=== PATIENT | female | born 1985 | race Caucasian/White ===

== ENCOUNTER 2017-07-30 21:09 | Emergency (ER) | payer MEDICAID ==
[~2017-07-30] VITALS: Ht 160 cm; Wt 122.5 kg
[~2017-07-30 21:09] MED LIST: ACETAMINOPHEN-H1 TA2 PO; BACTRIM 400 MG-1 TAB PO; CALCIUM GLUCON650 MG PO; CLINDAMYCIN HC300 MG PO; FIORICET1 CAP PO; GABAPENTIN 600600 MG PO; GABAPENTIN300 M1 PO; GLIPIZIDE XL5 M1 PO; GLIPIZIDE10 M3 PO; GLIPIZIDE10 MG PO; GLUCOPHAGE 850850 MG PO; IBUPROFEN800 MG PO; JARDIANCE10 MG PO; KEFLEX 500MG.500 MG PO; LIPITOR40 MG PO; LISINOPRIL2.5 MG PO; LISINOPRIL40 MG PO; METFORMIN HCL1000 MG PO; METFORMIN500 MG PO; MOTRIN 600MG.600 MG PO; NAPROXEN SODIU500 MG PO; NEURONTIN600 MG PO; NOMEDS XX; PROPRANOLOL ER80 MG PO; PROTONIX 40MG T40 MG PO; SUMATRIPTAN SU100 M1 PO; TERBINAFINE250 MG PO; TESSALON PERLE100 M1 PO; TESSALON PERLE100 MG PO; TYLENOL W/CODEI1 TAB PO; ZITHROMAX Z PA250 MG PO; ZITHROMAX Z-PA250 M1 PO; ZOFRAN ODT8 M1 PO
--- NOTE | 2017-07-30 21:50 | Emergency Room Report ---
History of Present Illness Time Seen by [id number] Presenting Problem in Triage Pt arrived:Walked Presenting Problem:C/O MIGRAINE HEADACHE FOR 2 DAYS. LIGHT SENSITIVE, DIZZY AND NAUSEATED Onset of symptoms date/time:/ or onset unknown for:MEDICAL HX UNKNOWN Treatment Prior to Arrival: [employer] Provided by: Sepsis Risk Assessment: Temp: 97.6 B/P: 124/71 MAP: 88 Pulse: 82 Resp: 18 Recent fever? N Clinical Suspician of Infection? N Mental Status: 1 - Regular (Normal Baseline) Sepsis Risk:Low Sepsis Ris Have you (or family members/close friends) recently traveled outside the [place]? N If Yes, where/when: Have you had exposure to infectious disease within the past month? N TB? Other? Specify: Source patient, RN notes reviewed, old records Exam Limitations no limitations Comment pt with hx of marie with acute onset oh her prev type marie but did not resp to her home meds Cardiac Chest Pain Chest pain indicative of cardiac No Timing/Duration this evening Severity moderate ALLERGIES Coded Allergies: acetaminophen (From DARVOCET-N) (Mild, I-HIVES 06/01/17) ceftriaxone (From ROCEPHIN) (06/01/17) ketorolac (From TORADOL) (06/01/17) morphine (06/01/17) propoxyphene (From DARVOCET-N) (06/01/17) Home Medications Reported Medications Propranolol Hcl (Propranolol HCl ER) 120 MG PO DAILY #30 Glipizide 10 MG PO DAILY Empagliflozin (Jardiance) 10 MG PO DAILY Gabapentin (Neurontin) 600 MG PO TID Lisinopril (Lisinopril 40MG) 20 MG PO DAILY #30 TAB Sumatriptan Succinate 100 MG PO DAILYP PRN MIGRAINES #9 History Medical History General CAD? No Angina: No [place]: No Hypertension? Yes Hyperlipidemia? No CHF? No DVT? No PE? No COPD? No Asthma? Yes Anemia? No GERD? No Gastric ulcers? No GI Bleed? No Hernia? No Thyroid Problems? No Hypothyroidism? No CVA? No Seizures? Yes Diabetes? Yes Insulin Dependent: No Insulin Pump: No Home FSBS? Yes Renal Insuffiency? No End Stage Renal Disease? No UTI? Yes Stones? No BPH? No GB Disease: No Nephritic Syndrome? No Asplenia? No Hepatitis? No Sickle Cell Disease? No Arthritis? No Migraines? Yes Cataracts? No Glaucoma? No MRSA? No HIV? No TB? No Anxiety? No Depression? Yes Cancer? No More? No Additional hx: 1. Hx of Rheumatic Fever 2. Diabetic neuropathy 3. Menstrual Dysfunction Immunization Hx DT/Tetanus > 10 Years Ago Flu 2015-16FSN Pneumonia RefusesY Surgical Hx Previous Surgery?Y C SECTION X 3 TONSILLECTOMY WISDOM TEETH REMOVAL OF SWEAT GLANDS ON RIGHT SIDE UNDERARM REMOVAL OF L SWEAT GLANDS 3RD SWEAT GLAND REMOVAL BOILING OFF WINDER Hx LMP 1 Month Ago Family History Family Hx Diabetes Yes CAD No Hypertension Yes Hyperlipidemia Yes Cancer Yes TB No Social History Smoking Hx Smoker: Current Every Day Smoker Tobacco: Yes Type Cigarettes Packs/day < 1 Pack Alcohol Alcohol: No Drugs none Review of Systems All Other Systems Reviewed and Negative Constitutional denies fever Eyes denies drainage ENT denies: ear discharge, epistaxis, throat pain. Respiratory denies cough, denies shortness of breath, denies wheezing Cardiovascular denies chest pain, denies palpitations, denies syncope Gastrointestinal denies abdominal pain, denies diarrhea, denies vomiting Genitourinary denies: dysuria, frequency, hesitancy, hematuria. Musculoskeletal denies back pain, denies joint pain, denies joint swelling, denies neck pain Skin denies rash Psychiatric/Neurological see HPI, headache, denies seizure, denies weakness Physical Exam Vital Signs Vital Signs Date Time Temp Pulse Resp B/P Pulse O2 O2 Flow FiO2 Ox Delivery Rate 07/30 2121 97.6 82 18 124/71 95 - WBC >12,000 or <4,000 or 10% bands? 2 or more SIRS Criteria Met? B/P:124/71 MAP:88 Creatinine >2.0? UA output<0.5ml/kg/hr for 2 hrs? Platelet count >100,000? Lactate >2.0mmol/1? INR >1.2 or PTT > than 60 sec? Evidence of Organ Dysfunction? Provider documented clinical suspician of infection? N Sepsis Criteria Count: 0N Sepsis Risk: Low Sepsis Ris General Appearance no apparent distress Eye Exam - bilateral eye PERRL, bilateral eye EOMI Ear, Nose, Throat normal ENT inspection Neck supple Respiratory Status No: respiratory distress. Lung Sounds bilateral: lungs clear. 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 No Departure Departure Time of Disposition 2144 Disposition DC Home or Self Care(routine) Clinical Impression Primary Impression: Headache Qualifiers: Headache type: unspecified Headache chronicity pattern: acute headache Intractability: not intractable Qualified Code: R51 - Headache Condition STABLE Patient Instructions DI for Headache Additional Instructions use meds and call your pcp in am Discharge Counseling Counseled pt/family regarding diagnosis, medications/RX, follow up needs ED Critical Care Critical Care No at [phone]
--- NOTE | 2017-07-30 21:50 | Emergency Room Report ---
History of Present Illness Time Seen by [id number] Presenting Problem in Triage Pt arrived:Walked Presenting Problem:C/O MIGRAINE HEADACHE FOR 2 DAYS. LIGHT SENSITIVE, DIZZY AND NAUSEATED Onset of symptoms date/time:/ or onset unknown for:MEDICAL HX UNKNOWN Treatment Prior to Arrival: [employer] Provided by: Sepsis Risk Assessment: Temp: 97.6 B/P: 124/71 MAP: 88 Pulse: 82 Resp: 18 Recent fever? N Clinical Suspician of Infection? N Mental Status: 1 - Regular (Normal Baseline) Sepsis Risk:Low Sepsis Ris Have you (or family members/close friends) recently traveled outside the [place]? N If Yes, where/when: Have you had exposure to infectious disease within the past month? N TB? Other? Specify: Source patient, RN notes reviewed, old records Exam Limitations no limitations Comment pt with hx of marie with acute onset oh her prev type marie but did not resp to her home meds Cardiac Chest Pain Chest pain indicative of cardiac No Timing/Duration this evening Severity moderate ALLERGIES Coded Allergies: acetaminophen (From DARVOCET-N) (Mild, I-HIVES 06/01/17) ceftriaxone (From ROCEPHIN) (06/01/17) ketorolac (From TORADOL) (06/01/17) morphine (06/01/17) propoxyphene (From DARVOCET-N) (06/01/17) Home Medications Reported Medications Propranolol Hcl (Propranolol HCl ER) 120 MG PO DAILY #30 Glipizide 10 MG PO DAILY Empagliflozin (Jardiance) 10 MG PO DAILY Gabapentin (Neurontin) 600 MG PO TID Lisinopril (Lisinopril 40MG) 20 MG PO DAILY #30 TAB Sumatriptan Succinate 100 MG PO DAILYP PRN MIGRAINES #9 History Medical History General CAD? No Angina: No [place]: No Hypertension? Yes Hyperlipidemia? No CHF? No DVT? No PE? No COPD? No Asthma? Yes Anemia? No GERD? No Gastric ulcers? No GI Bleed? No Hernia? No Thyroid Problems? No Hypothyroidism? No CVA? No Seizures? Yes Diabetes? Yes Insulin Dependent: No Insulin Pump: No Home FSBS? Yes Renal Insuffiency? No End Stage Renal Disease? No UTI? Yes Stones? No BPH? No GB Disease: No Nephritic Syndrome? No Asplenia? No Hepatitis? No Sickle Cell Disease? No Arthritis? No Migraines? Yes Cataracts? No Glaucoma? No MRSA? No HIV? No TB? No Anxiety? No Depression? Yes Cancer? No More? No Additional hx: 1. Hx of Rheumatic Fever 2. Diabetic neuropathy 3. 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 Respiratory denies cough, denies shortness of breath, denies wheezing Cardiovascular denies chest pain, denies palpitations, denies syncope Gastrointestinal denies abdominal pain, denies diarrhea, denies vomiting Genitourinary denies: dysuria, frequency, hesitancy, hematuria. Musculoskeletal denies back pain, denies joint pain, denies joint swelling, denies neck pain Skin denies rash Psychiatric/Neurological see HPI, headache, denies seizure, denies weakness Physical Exam Vital Signs Vital Signs Date Time Temp Pulse Resp B/P Pulse O2 O2 Flow FiO2 Ox Delivery Rate 07/30 2121 97.6 82 18 124/71 95 - WBC >12,000 or <4,000 or 10% bands? 2 or more SIRS Criteria Met? B/P:124/71 MAP:88 Creatinine >2.0? UA output<0.5ml/kg/hr for 2 hrs? Platelet count >100,000? Lactate >2.0mmol/1? INR >1.2 or PTT > than 60 sec? Evidence of Organ Dysfunction? Provider documented clinical suspician of infection? N Sepsis Criteria Count: 0N Sepsis Risk: Low Sepsis Ris General Appearance no apparent distress Eye Exam - bilateral eye PERRL, bilateral eye EOMI Ear, Nose, Throat normal ENT inspection Neck supple Respiratory Status No: respiratory distress. Lung Sounds bilateral: lungs clear. 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 No Departure Departure Time of Disposition 2144 Disposition DC Home or Self Care(routine) Clinical Impression Primary Impression: Headache Qualifiers: Headache type: unspecified Headache chronicity pattern: acute headache Intractability: not intractable Qualified Code: R51 - Headache Condition STABLE Patient Instructions DI for Headache Additional Instructions use meds and call your pcp in am Discharge Counseling Counseled pt/family regarding diagnosis, medications/RX, follow up needs ED Critical Care Critical Care No at [phone]
[2017-07-30 22:19] VITALS: BP 122/54
== END 2017-07-30 22:20 | disposition home or self-care (01) ==
LOC: ER 21:09
DX: R51 Headache (principal); F17.210 Nicotine dependence, cigarettes, uncomplicated; E11.40 Type 2 diabetes mellitus with diabetic neuropathy, unspecified; J45.909 Unspecified asthma, uncomplicated; I10 Essential (primary) hypertension; Z79.84 Long term (current) use of oral hypoglycemic drugs; Z79.899 Other long term (current) drug therapy
CPT/HCPCS: J0595

== ENCOUNTER 2017-10-17 14:24 | Emergency (ER) | payer OTHER, MEDICAID ==
[~2017-10-17] VITALS: Ht 160 cm; Wt 122.5 kg
--- OUTSIDE RECORDS SUMMARY | 2017-10-17 14:45 | External Medical Summary Rpt | CCD ---
Author Author , CARLI HO Address Unknown Phone [email or web address] Purpose Continuity of Care Document - 06-01-2017 through 2016 Problems Code Diagnosis DOS Provider Status G89.29 OTHER 06-20-2017 CHRONIC PAIN M54.5 LOW BACK 06-20-2017 PAIN D72.829 ELEVATED WHITE BLOOD CELL COUNT, UNSPECIFIED E11.65 TYPE 2 DIABETES MELLITUS WITH HYPERGLYCEM IA E83.51 HYPOCALCEMI A E86.0 DEHYDRATION E86.1 HYPOVOLEMIA G89.18 OTHER ACUTE POSTPROCEDU RAL PAIN J01.90 ACUTE SINUSITIS, UNSPECIFIED J06.9 ACUTE UPPER RESPIRATORY INFECTION, UNSPECIFIED K85.90 ACUTE PANCREATITI S WITHOUT NECROSIS OR INFECTION, UNSP L03.111 CELLULITIS OF RIGHT AXILLA L03.90 CELLULITIS, UNSPECIFIED N92.6 IRREGULAR MENSTRUATIO N, UNSPECIFIED R07.9 CHEST PAIN, UNSPECIFIED R21 RASH AND OTHER NONSPECIFIC SKIN ERUPTION R51 HEADACHE S30.0XXA CONTUSION OF LOWER BACK AND PELVIS, INITIAL ENCOUNTER S33.5XXA SPRAIN OF LIGAMENTS OF LUMBAR SPINE, INITIAL ENCOUNTER S93.601A UNSPECIFIED SPRAIN OF RIGHT FOOT, INITIAL ENCOUNTER T78.40XA ALLERGY, UNSPECIFIED , INITIAL ENCOUNTER T88.7XXA UNSP ADVERSE EFFECT OF DRUG OR MEDICAMENT, INIT ENCNTR Z48.00 ENCOUNTER FOR CHANGE OR REMOVAL OF NONSURG WOUND DRESSING Z51.89 ENCOUNTER FOR OTHER SPECIFIED AFTERCARE Z71.89 OTHER SPECIFIED COUNSELING Z72.0 TOBACCO USE Z91.14 PATIENT'S OTHER NONCOMPLIAN CE WITH MEDICATION REGIMEN Results Labs Lab Lab Date Result Refere Interp Status Commen Order Detail nces retati t Range on Gas panel in Arterial blood (06-01-2017 14:00) Arteria ACCEPTA complet l 017 BLE ed patency 14:00 Wrist artery --pre arteria l punctur e SOURCE RIGHT complet 017 RADIAL ed 14:00 Drugs identified in Urine by Screen method (06-01-2017) Ampheta NEGATIV <1000 complet mine 017 E ed [Presen ce] in Urine by Screen method 11-Hydr POSITIV <50 Abnorma complet oxy 017 E l ed delta-9 tetrahy drocann abinol [Presen ce] in Unspeci fied specime n
--- OUTSIDE RECORDS SUMMARY | 2017-10-17 14:45 | External Medical Summary Rpt | CCD ---
Author Author [employer] Address Unknown Phone Unavailable Purpose Continuity of Care Document - through 2016
--- OUTSIDE RECORDS SUMMARY | 2017-10-17 14:45 | External Medical Summary Rpt | CCD ---
Author Author , CARLI HO Address Unknown Phone [email or web address] Purpose Continuity of Care Document - 06-01-2017 [...]
--- OUTSIDE RECORDS SUMMARY | 2017-10-17 14:46 | External Medical Summary Rpt ---
Author Author [facility]y, [facility] Organization [facility] Address Unknown Phone Unavailable Results Basic metabolic panel in Blood Observa Value Referen Units Interpr Notes Date tion ce etation Range Urea 7 - 18 mg/dL No No Jun 02 nitrogen informati informati 2016 6:30 [Mass/vol on in on in AM ume] in source source Serum or data data Plasma Calcium 8.5 - mg/dL Low No Jun 02 [Mass/vol 10.1 informati 2016 6:30 ume] in on in AM Serum or source Plasma data Chloride 98 - 107 mmoL/L High No Jun 02 [Moles/vo informati 2016 6:30 lume] in on in AM Serum or source Plasma data Carbon 21.0 - mmoL/L Normal No Jun 02 dioxide, 32.0 informati 2016 6:30 total on in AM [Moles/vo source lume] in data Serum or Plasma Creatinin 0.55 - mg/dL No No Jun 02 e 1.02 informati informati 2016 6:30 [Mass/vol on in on in AM ume] in source source Serum or data data Plasma Creatinin 50 - 200 ML/MIN High No Jun 02 e renal informati 2017 6:30 clearance on in AM source predicted data by Cockcroft -Gault formula Estimated 59- ML/MIN No REFERENCE Jun 02 informati RANGE: 2017 6:30 glomerula on in >60 AM r source ML/MIN/1. filtratio data 73 SQUARE n rate METERSIf (GF this patient is -A merican, then multiply theresult by 1.210. Glucose 74 - 106 mg/dL High No Jun 02 [Mass/vol informati 2016 6:30 ume] in on in AM Serum or source Plasma data Potassium 3.5 - 5.1 mmoL/L Normal No Jun 02 informati 2016 6:30 [Moles/vo on in AM lume] in source Serum or data Plasma Sodium 136 - 145 mmoL/L Normal No Jun 02 [Moles/vo informati 2017 6:30 lume] in on in AM Serum or source Plasma data CBC W Auto Differential panel in Blood Observa Value Referen Units Interpr Notes Date tion ce etation Range Basophils 0 - 0.2 K/MM3 Normal No Jun 02 informati 2017 6:30 [#/volume on in AM ] in source Blood by data Automated count Basophils 0.1 - 2.0 % Normal No Jun 02 / informati 2016 6:30 leukocyte on in AM s in source Blood by data Automated count Eosinophi 0.0 - 0.4 K/mm3 High No Jun 02 ls informati 2016 6:30 [#/volume on in AM ] in source Blood by data Automated count Eosinophi 0.1 - % Normal No Jun 02 ls/100 12.0 informati 2017 6:30 leukocyte on in AM s in source Blood by data Automated count Granulocy 1.8 - 7.8 K/mm3 Normal No Jun 02 judi informati 2016 6:30 [#/volume on in AM ] in source Blood by data Automated count Granulocy 37.0 - % Normal No Jun 02 judi/100 80.0 informati 2016 6:30 leukocyte on in AM s in source Blood by data Automated count Hematocri 37.0 - % Normal No Jun 02 t [Volume 47.0 informati 2017 6:30 on in AM Fraction] source of Blood data Hemoglobi 12.2 - g/dL Normal No Jun 02 n 16.2 informati 2016 6:30 [Mass/vol on in AM ume] in source Blood data Lymphocyt 0.7 - 4.5 K/mm3 Normal No Jun 02 es informati 2016 6:30 [#/volume on in AM ] in source Unspecifi data ed specimen by Automated count Lymphocyt 10 - 50.0 % Normal No Jun 02 es informati 2016 6:30 [#/volume on in AM ] in source Unspecifi data ed specimen by Automated count Erythrocy 27 - 31.2 pg Low No Jun 02 te mean informati 2016 6:30 corpuscul on in AM ar source hemoglobi data n [Entitic mass] Erythrocy 31.8 - g/dl Low No Jun 02 te mean 35.4 informati 2016 6:30 corpuscul on in AM ar source hemoglobi data n concentra tion [Mass/vol ume] by Automated count Erythrocy 82.2 - fl Normal No Jun 02 te mean 97.8 informati 2017 6:30 corpuscul on in AM ar volume source [Entitic data volume] by Automated count Monocytes 0.1 - 1.0 K/mm3 Normal No Jun 02 informati 2017 6:30 [#/volume on in AM ] in source Blood by data Automated count Monocytes 1.7 - 9.3 % Normal No Jun 02 /100 informati 2017 6:30 leukocyte on in AM s in source Blood by data Automated count Platelet 7.4 - fl Low No Jun 02 mean 10.4 informati 2017 6:30 volume on in AM [Entitic source volume] data in Blood by Automated count Platelets 142 - 424 K/mm3 Normal No Jun 02 informati 2017 6:30 [#/volume on in AM ] in source Blood data Erythrocy 4.2 - 5.4 M/mm3 Normal No Jun 02 judi informati 2016 6:30 [#/volume on in AM ] in source Amniotic data fluid Erythrocy 11.5 - % Normal No Jun 02 te 17.5 informati 2016 6:30 distribut on in AM ion width source [Entitic data volume] by Automated count Leukocyte 4.8 - K/MM3 Normal No Jun 02 s 10.8 informati 2016 6:30 [#/volume on in AM ] in source Blood data Glucose [Mass/volume] in Capillary blood by Glucometer Observa Value Referen Units Interpr Notes Date ti etation Range Glucose 70 - 110 mg/dl High No Jun 02 [Mass/vol informati 2017 6:15 ume] in on in AM Capillary source blood by data Glucomete r Glucose [Mass/volume] in Capillary blood by Glucometer Observa Value Referen Units Interpr Notes Date ti ce etation Range Glucose 70 - 110 mg/dl High No Jun 01 [Mass/vol informati 2016 7:54 ume] in on in PM Capillary source blood by data Glucomete r Glucose [Mass/volume] in Capillary blood by Glucometer Observa Value Referen Units Interpr Notes Date ti etation Range Glucose 70 - 110 mg/dl No No Jun 01 [Mass/vol informati informati 2017 5:02 ume] in on in on in PM Capillary source source blood by data data Glucomete r Glucose [Mass/volume] in Capillary blood by Glucometer Observa Value Referen Units Interpr Notes Date ti ce etation Range Glucose 70 - 110 mg/dl High No Jun 01 [Mass/vol informati 2017 3:58 ume] in on in PM Capillary source blood by data Glucomete r Gas panel in Arterial blood Observa Value Referen Units Interpr Notes Date ti ce etation Range Base -2.4-+2.3 MMOL/L Normal No Jun 01 excess in informati 2017 2:00 Arterial on in PM blood source data Arteria ACCEPTA No No No No Jun 01 l BLE informa informa informa informa 2017 patency tion in tion in tion in tion in 2:00 PM Wrist source source source source artery data data data data --pre arteria l punctur e Bicarbona 22.0 - MMOL/L Normal No Jun 01 te 26.0 informati 2016 2:00 [Moles/vo on in PM lume] in source Arterial data blood Oxygen No No No No Jun 01 content informati informati informati informati 2017 2:00 in on in on in on in on in PM Arterial source source source source blood data data data data Carbon 35.0 - MMHG Normal No Jun 01 dioxide 45.0 informati 2016 2:00 [Partial on in PM pressure] source in data Arterial blood pH of 7.35 - MMOL/L Normal No Jun 01 Arterial 7.45 informati 2016 2:00 blood on in PM source data Oxygen 80 - 100 MMHG Normal No Jun 01 [Partial informati 2017 2:00 pressure] on in PM in source Arterial data blood Oxygen 90 - 100 % Normal No Jun 01 saturatio informati 2017 2:00 n.calcula on in PM sasha from source oxygen data partial pressure in Arterial blood SOURCE RIGHT No No No No Jun 01 RADIAL informa informa informa informa 2017 tion in tion in tion in tion in 2:00 PM source source source source data data data data Carbon 23 - 27 MMOL/L Normal No Jun 01 dioxide, informati 2017 2:00 total on in PM [Moles/vo source lume] in data Arterial blood Lactate [Moles/volume] in Blood Observa Value Referen Units Interpr Notes Date ti ce etation Range Lactate 0.4 - 2.0 mmol/L Normal No Jun 01 [Moles/vo informati 2017 1:05 lume] in on in PM Blood source data Magnesium [Moles/volume] in Unspecified specimen Observa Value Referen Units Interpr Notes Date tion ce etation Range Magnesium 1.4 - 2.2 mg/dL Normal No Jun [id number] [Moles/vo on in 12:31 PM lume] in source Unspecifi data ed specimen Acetone [Mass/volume] in Serum or Plasma Observa Value Referen Units Interpr Notes Date tion ce etation Range Acetone NOT No No No Jun 01 [Mass/vol DETECTD informati informati informati 2016 ume] in on in on in on in 12:31 PM Serum or source source source Plasma data data data CBC W Auto Differential panel in Blood Observa Value Referen Units Interpr Notes Date tion ce etation Range Basophils 0 - 0.2 K/MM3 Normal No Jun 012016 [#/volume on in 12:31 PM ] in source Blood by data Automated count Basophils 0.1 - 2.0 % Normal No Jun 012016 leukocyte on in 12:31 PM s in source Blood by data Automated count Eosinophi 0.0 - 0.4 K/mm3 High No Jun 01 ls 2016 [#/volume on in 12:31 PM ] in source Blood by data Automated count Eosinophi 0.1 - % Normal No Jun 01 ls/100 12.0 2016 leukocyte on in 12:31 PM s in source Blood by data Automated count Granulocy 1.8 - 7.8 K/mm3 Normal No Jun 01 judi 2016 [#/volume on in 12:31 PM ] in source Blood by data Automated count Granulocy 37.0 - % Normal No Jun 01 judi/100 80.0 2016 leukocyte on in 12:31 PM s in source Blood by data Automated count Hematocri 37.0 - % Normal No Jun 01 t [Volume 47.0 ati 2016 on in 12:31 PM Fraction] source of Blood data Hemoglobi 12.2 - g/dL Normal No Jun 01 n 16.2 inform2016 [Mass/vol on in 12:31 PM ume] in source Blood data Lymphocyt 0.7 - 4.5 K/mm3 Normal No Jun 01 es inform2016 [#/volume on in 12:31 PM ] in source Unspecifi data ed specimen by Automated count Lymphocyt 10 - 50.0 % Normal No Jun 01 es 2016 [#/volume on in 12:31 PM ] in source Unspecifi data ed specimen by Automated count Erythrocy 27 - 31.2 pg Low No Jun 01 te mean 2016 corpuscul on in 12:31 PM ar source hemoglobi data n [Entitic mass] Erythrocy 31.8 - g/dl Low No Jun 01 te mean 35.4 2016 corpuscul on in 12:31 PM ar source hemoglobi data n concentra tion [Mass/vol ume] by Automated count Erythrocy 82.2 - fl Normal No Jun 01 te mean 97.8 2016 corpuscul on in 12:31 PM ar volume source [Entitic data volume] by Automated count Monocytes 0.1 - 1.0 K/mm3 Normal No Jun 012016 [#/volume on in 12:31 PM ] in source Blood by data Automated count Monocytes 1.7 - 9.3 % Normal No Jun 01 /100 2016 leukocyte on in 12:31 PM s in source Blood by data Automated count Platelet 7.4 - fl Low Jun 01 mean 10.4 2016 volume on in 12:31 PM [Entitic source volume] data in Blood by Automated count Platelets 142 - 424 K/mm3 Normal No Jun 012016 [#/volume on in 12:31 PM ] in source Blood data Erythrocy 4.2 - 5.4 M/mm3 Normal No Jun 01 judi 2016 [#/volume on in 12:31 PM ] in source Amniotic data fluid Erythrocy 11.5 - % Normal No Jun 01 te 17.5 2016 distribut on in 12:31 PM ion width source [Entitic data volume] by Automated count Leukocyte 4.8 - K/MM3 High No Jun 01 s 10.8 2016 [#/volume on in 12:31 PM ] in source Blood data Glucose [Mass/volume] in Capillary blood by Glucometer Observa Value Referen Units Interpr Notes Date tion ce etation Range Glucose 70 - 110 mg/dl High No Jun 01 [Mass/vol alert 2016 ume] in on in 12:05 PM Capillary source blood by data Glucomete r Drugs identified in Urine by Screen method Observa Value Referen Units Interpr Notes Date tion ce etation Range Positive urine drug screen samples are stored for 7 days. Contact the Lab if confirmation of positives is needed. Ampheta NEGATIV <1000 ng/mL No No Jun 01 mine E informa informa 2017 [Presen tion in tion in ce] in source source Urine data data by Screen method Barbitura <200 ng/mL No No Jun 01 judi informati informati 2017 [Mass/vol on in on in ume] in source source Urine by data data Screen method Benzodiaz 200 ng/mL ng/mL No No Jun 01 epines informati informati 2017 [Mass/vol on in on in ume] in source source Serum or data data Plasma by Screen method Cocaine <300 ng/g No No Jun 01 [Mass/vol informati informati 2016 ume] in on in on in Unspecifi source source ed data data specimen Methadone <300 ng/mL No No Jun 01 informati informati 2017 [Mass/vol on in on in ume] in source source Unspecifi data data ed specimen Opiates <300 ng/mL No No Jun 01 [Mass/vol informati informati 2016 ume] in on in on in Unspecifi source source ed data data specimen Phencycli <25 ng/mL No No Jun 01 dine informati informati 2016 [Mass/vol on in on in ume] in source source Unspecifi data data ed specimen 11-Hydr POSITIV <50 ng/mL Abnorma This is Jun 01 oxy E l an 2017 delta-9 UNCONFI RMED tetrahy result. drocann This abinol result [Presen is for ce] in medical Unspeci purpose fied s specime and/or n treatme nt only. Choriogonadotropin.beta subunit [Units] in 24 hour Urine Observa Value Referen Units Interpr Notes Date tion ce etation Range Choriogon NEG No No Meulendyk Jun 01 adotropin informati informati e,Katheri 2017 .beta on in on in ne subunit source source [Units] data data in 24 hour Urine
--- OUTSIDE RECORDS SUMMARY | 2017-10-17 14:46 | External Medical Summary Rpt ---
Author Author [facility], [facility] Organization [facility] Address Unknown [...]
--- OUTSIDE RECORDS SUMMARY | 2017-10-17 14:46 | External Medical Summary Rpt | CCD ---
Author Author , [facility] Address Unknown Phone [email or web address] Immunization Name Date Rout CVX Reac Dose Comm Prov Is Faci e tion ent ider Refu lity Give sed n Hep 02-0 8 999 Hist H149 No H149 B, 3-20 [facility] ped/ 00 al adol Info rmat ion - Sour ce Unsp ecif ied Td 05-2 9 999 Hist H149 No H149 (alex - ori lt), 99 al Info adso rmat rbed ion - Sour ce Unsp ecif ied Hep 05-2 42 999 Hist H149 No H149 B, - ori adol 99 al Info High rmat Ris ion - Sour ce Unsp ecif ied
--- OUTSIDE RECORDS SUMMARY | 2017-10-17 14:46 | External Medical Summary Rpt | CCD ---
Author Author , [facility] Address Unknown Phone [email or web address] Immunization Name Date Rout CVX Reac Dose Comm Prov Is Faci e tion ent ider Refu lity Give sed n Hep 02-0 8 999 Hist H149 No H149 B, 3-20 [facility] ped/ 00 al adol Info rmat ion [...]
--- NOTE | 2017-10-17 16:07 | RADIOLOGY REPORT PS360 ---
ELBOW-LT-3 VIEWS HISTORY: FELL AND INJURIED ELBOW ORDERING PHYSICIAN: MEKHI BROOKS APRN PATIENT AGE: 32 years COMPARISON: None FINDINGS: BONY STRUCTURES: No fracture or dislocation. No lytic or blastic change. Normal mineralization. SOFT TISSUES: Unremarkable. No radio opaque foreign bodies. No displaced fat pad. JOINT SPACE: Well-preserved. No significant arthritic changes evident. IMPRESSION: Negative elbow.
--- NOTE | 2017-10-17 16:44 | Urgent Treatment Center Report ---
History of Present Issue Date/Time Seen by Provider 10/17/17 1620 Visit Reason Pt arrived:Walked Presenting Problem:WAS AT WORK [employer], FELL AND HIT ELBOW ON CONCRETE FLOOR. DENIES HITTING HEAD. Location if Accident: Onset of symptoms date/time:10/17/1703/29/1030 or onset unknown for: Have you (or family members/close friends) recently traveled outside the [place]? N If Yes, where/when: Have you had exposure to infectious disease within the past month? TB? Other? Specify: c/o left elbow pain. Thinks "just bruised" but reports work made her come. Nam 1030-11 this morning, slipped on a wet floor while holding a puppy in each arm. Reports she did the splits and hit left elbow on the concrete. Pain only where she hit, described as what sounds like the olecranon. Full ROM, denies N/T. Pain worse w/ ROM so holding FA to chest. Reports in last hour, from elbow to neck feels stiff. Doesn't feel that is related to the fall "but more because I have been guarding it and not using it as much". Two unknown pain relievers from work 's first aid kit, not sure what time. Tried to finish out shift but just wasn't able to. Source patient Exam Limitations no limitations ALLERGIES Coded Allergies: acetaminophen (From DARVOCET-N) (Mild, I-HIVES 06/01/17) ceftriaxone (From ROCEPHIN) (06/01/17) ketorolac (From TORADOL) (06/01/17) morphine (06/01/17) propoxyphene (From DARVOCET-N) (06/01/17) Home Medications Reported Medications Propranolol Hcl (Propranolol HCl ER) 120 MG PO DAILY #30 Glipizide 10 MG PO DAILY Empagliflozin (Jardiance) 10 MG PO DAILY Gabapentin (Neurontin) 600 MG PO TID Lisinopril (Lisinopril 40MG) 20 MG PO DAILY #30 TAB Sumatriptan Succinate 100 MG PO DAILYP PRN MIGRAINES #9 History Medical History General CAD? No Angina: No OR: No Hypertension? Yes Hyperlipidemia? No CHF? No DVT? No PE? No COPD? No Asthma? Yes Anemia? No GERD? No Gastric ulcers? No GI Bleed? No Hernia? No Thyroid Problems? No Hypothyroidism? No CVA? No Seizures? Yes Diabetes? Yes Insulin Dependent: No Insulin Pump: No Home FSBS? Yes Renal Insuffiency? No UTI? Yes Stones? No BPH? No GB Disease: No Nephritic Syndrome? No Asplenia? No Hepatitis? No Sickle Cell Disease? No Arthritis? No Migraines? Yes Cataracts? No Glaucoma? No MRSA? No HIV? No TB? No Anxiety? No Depression? Yes Cancer? No More? No Additional hx: 1. Hx of Rheumatic Fever 2. Diabetic neuropathy 3. Menstrual Dysfunction Immunization HX DT/Tetanus > 10 Years Ago Flu 2015-16FSN Pneumonia RefusesY Surgical Hx Previous Surgery?Y C SECTION X 3 TONSILLECTOMY WISDOM TEETH REMOVAL OF SWEAT GLANDS ON RIGHT SIDE UNDERARM REMOVAL OF L SWEAT GLANDS 3RD SWEAT GLAND REMOVAL Family History Family HX Diabetes Yes CAD No Hypertension Yes Hyperlipidemia Yes Cancer Yes TB No Social History Smoking Hx Smoker: Current Every Day Smoker Tobacco: Yes Type Cigarettes Packs/day < 1 Pack Alcohol Alcohol: No Review of Systems All Other Systems Reviewed and Negative (as appropriate for CC) Musculoskeletal see HPI, denies back pain, denies other (pain elsewhere, head hit, LOC) Skin denies change in color, denies lesions, denies lumps Psychiatric/Neurological see HPI, denies headache Physical Exam Vital Signs Vital Signs Date Time Temp Pulse Resp B/P Pulse O2 O2 Flow FiO2 Ox Delivery Rate 10/17 1702 98.3 95 20 125/82 100 10/17 1541 98.3 91 20 120/84 100 10/17 1435 98.3 91 20 120/84 100 General Appearance no apparent distress, obese Respiratory Status No: respiratory distress. Cardiovascular no peripheral edema Peripheral Pulses Pulses normal Yes (radial) Back gait normal Extremities normal range of motion (left digits, wrist), normal inspection (left UE), hesitant to perform left shoulder ROM because increases elbow pain. Adament she can move it and has been, refusing to show me she can during visit. Declines concern for shoulder or upper arm. Declines xray of either. "just stiff from not moving it" Agrees to follow up for new or worsening symptoms, full left elbow flexion w/ extension limited to approx 30 degrees, TTP left olecranon Strength 5 Upper Ext (L), 5 Upper Ext (R) Neurologic alert, no motor/sensory deficits Skin intact, normal color, warm/dry Medical Decision Making LABS/Meds/Orders Pt receiving controlled substance in ED? No Results/Orders Orders Procedure Date/time Status STABILIZE JOINT 10/17 1642 Active XRAY/CT/US XRAY/CT/US XRAY elbow (left) XR interpretation by reviewed by me, discussed w/radiologist (read report) Xray Results no acute findings Departure Departure Time of Disposition 1653 Disposition DC Home or Self Care(routine) Clinical Impression Primary Impression: Left elbow contusion Qualifiers: Encounter type: initial encounter Qualified Code: S50.02XA - Contusion of left elbow, initial encounter Condition STABLE Referrals Jalen Jon MD IMMEDIATELY for new or worsening symptoms OR no noticeable improvement over the next 3-5 days Patient Instructions DI for Contusion Additional Instructions * use as tolerated. if pain, don't do it. * ice 15-20 mins 3-4 times a day * sling for support and swelling unless in shower. Be sure not too tight but not too loose either * Elevate as discussed as much as possible to help reduce swelling and therefore , pain * Ibuprofen every 6 hours as needed for pain and inflammation. If you need something more, you can take tylenol every 4 hours as needed as long as your primary care provider has told you it is ok to take both. Discharge Counseling Counseled pt/family regarding diagnosis, test results, medications/RX, home care, follow up needs at [phone]
[2017-10-17 17:02] VITALS: BP 125/82
== END 2017-10-17 17:02 | disposition home or self-care (01) ==
LOC: ER 14:24 → UTC 14:42 → ER 14:42 → UTC 17:02
DX: S50.02XA Contusion of left elbow, initial encounter (principal); Z72.0 Tobacco use; E11.9 Type 2 diabetes mellitus without complications; I10 Essential (primary) hypertension; W01.0XXA Fall on same level from slipping, tripping and stumbling without subsequent striking against object, initial encounter; Y92.69 Other specified industrial and construction area as the place of occurrence of the external cause; Y99.0 Civilian activity done for income or pay